=== PATIENT | male | born 1975 | race Caucasian/White ===

== ENCOUNTER 2018-06-04 16:06 | Inpatient (IN) | payer BC, OTHER ==
--- NOTE | 2018-06-04 16:26 | EDPHY ---
H & P Time Seen by Provider: 06/04/18 16:25 HPI/ROS: Chief complaint. Abdominal pain HPI. 42-year-old male presents with 2-3 day history of generalized abdominal pain. He began to have generalized abdominal cramping after lunch 2 days ago. He has had continuing nausea and vomiting. He is not passing any gas or having any bowel movements. Can't keep water down. He feels hot but no fever. No previous abdominal surgery or chronic abdominal problems. Decreased urination but otherwise no urinary symptoms. No chest discomfort or trouble breathing. No fever. He knows generalized abdominal pain that radiates to his back. He feels bloated. ROS Constitutional. no fever/chills, no weakness Eyes. no problems with vision ENT. no sore throat, no nasal drainage Cardiovascular. no chest pain Respiratory. no shortness of breath, no cough Abdominal. Generalized abdominal pain with nausea vomiting. No gas or stool per rectum . no problems urinating MS. no calf pain/swelling, no neck/back pain, no joint pain Skin. no rash Lymph. no swollen glands Neuro. no headache, no dizziness, no difficulty walking or with speech Past Medical/Surgical History: Past medical history significant for vasectomy Social History: , nonsmoker, no alcohol Smoking Status: Never smoked Physical Exam: General Appearance: Alert well-developed male moderate distress vital signs are stable Eyes: Pupils equal and round no pallor or injection. ENT, Mouth: Mucous membranes are moist. Respiratory: There are no retractions, lungs are clear to auscultation. Cardiovascular: Regular rate and rhythm. Gastrointestinal: Abdomen is soft with generalized diffuse tenderness. No masses. No bowel sounds present Neurological: Awake and alert, sensory and motor exams grossly normal. Skin: Warm and dry, no rashes. Musculoskeletal: Neck is supple nontender. Extremities symmetrical, full range of motion. Psychiatric: Patient is oriented X 3, there is no agitation. Constitutional: Initial Vital Signs Temperature (C) 36.6 C 06/04/18 16:22 Heart Rate 76 06/04/18 16:22 Respiratory Rate 16 06/04/18 16:22 Blood Pressure 139/90 H 06/04/18 16:22 O2 Sat (%) 95 06/04/18 16:22 O2 Delivery Mode Room Air Allergies/Adverse Reactions: shellfish derived Allergy (Verified 06/04/18 16:21) Home Medications: Medication Instructions Recorded NK [No Known Home Meds] 06/04/18 Medical Decision Making - Diagnostics Imaging Results: Imaging Impressions Abdomen CT 06/04/18 16:40 Impression: 1. There is a high-grade small bowel obstruction with the point of transition in the left paracentral wys-du-abauf abdomen, with no discernible obstructing mass (the patient reportedly does not have a prior abdominal surgical history). There is resultant upstream small bowel dilatation and submucosal edema, and the stomach is fluid-distended, and the patient would benefit from a nasogastric tube and a surgical consultation. 2. Small-volume ascites. 3. Mild diffuse hepatic steatosis. Findings were discussed with JILL IVEY MD at 18:02, on 06/04/2018. CT abdomen and pelvis reviewed by me and discussed with Dr. Sandoval shows a small bowel obstruction Procedures: IV normal saline. IV Zofran ED Course/Re-evaluation: Re-evaluation at 5:20 p.m. Patient is stable. He and I discussed imaging study results, treatment plan including recommendation for surgical consultation. He expresses understanding and agreement I consulted discussed the case with Dr. Borja for surgery who will see the patient in the emergency department Differential Diagnosis: I have considered diverticulitis, small-bowel obstruction, pancreatitis - Data Points Laboratory Results: Laboratory Results 06/04/18 16:35 06/04/18 16:35 06/04/18 06/04/18 16:35 16:35 WBC 10.74 10^3/uL H 10^3/uL (3.80-9.50) RBC 5.61 10^6/uL 10^6/uL (4.40-6.38) Hgb 17.4 g/dL g/dL (13.7-17.5) Hct 50.5 % % (40.0-51.0) MCV 90.0 fL fL (81.5-99.8) MCH 31.0 pg pg (27.9-34.1) MCHC 34.5 g/dL g/dL (32.4-36.7) RDW 12.0 % % (11.5-15.2) Plt Count 292 10^3/uL 10^3/uL (150-400) MPV 10.0 fL fL (8.7-11.7) Neut % (Auto) 78.9 % H % (39.3-74.2) Lymph % (Auto) 10.3 % L % (15.0-45.0) [place] % (Auto) 10.1 % % (4.5-13.0) Eos % (Auto) 0.2 % L % (0.6-7.6) Baso % (Auto) 0.3 % % (0.3-1.7) Nucleat RBC Rel Count 0.0 % % (0.0-0.2) Absolute Neuts (auto) 8.48 10^3/uL H 10^3/uL (1.70-6.50) Absolute Lymphs (auto) 1.11 10^3/uL 10^3/uL (1.00-3.00) Absolute Monos (auto) 1.08 10^3/uL H 10^3/uL (0.30-0.80) Absolute Eos (auto) 0.02 10^3/uL L 10^3/uL (0.03-0.40) Absolute Basos (auto) 0.03 10^3/uL 10^3/uL (0.02-0.10) Absolute Nucleated RBC 0.00 10^3/uL 10^3/uL (0-0.01) Immature Gran % 0.2 % % (0.0-1.1) Immature Gran # 0.02 10^3/uL 10^3/uL (0.00-0.10) Sodium 138 mEq/L mEq/L (135-145) Potassium 4.1 mEq/L mEq/L (3.3-5.0) Chloride 96 mEq/L L mEq/L (97-110) Carbon Dioxide 30 mEq/l mEq/l (22-31) Anion Gap 12 mEq/L mEq/L (8-16) BUN 37 mg/dL H mg/dL (7-23) Creatinine 1.4 mg/dL H mg/dL (0.7-1.3) Estimated GFR 55 Glucose 130 mg/dL H mg/dL (70-100) Calcium 10.9 mg/dL H mg/dL (8.5-10.4) Phosphorus Pending Lipase 77 IU/L IU/L (23-300) Medications Given: Discontinued Medications Sodium Chloride (Ns) 1,000 mls @ 0 mls/hr IV EDNOW ONE; Wide Open PRN Reason: Protocol Stop: 06/04/18 16:41 Last Admin: 06/04/18 16:56 Dose: 1,000 mls Sodium Chloride (Ns) 1,000 mls @ 0 mls/hr IV EDNOW ONE; Wide Open PRN Reason: Protocol Stop: 06/04/18 16:41 Last Admin: 06/04/18 16:56 Dose: 1,000 mls Ondansetron HCl (Zofran) 4 mg IVP EDNOW ONE Stop: 06/04/18 16:41 Last Admin: 06/04/18 16:56 Dose: 4 mg Departure - Departure Disposition: [facility] Acute Clinical Impression: Small bowel obstruction Condition: Fair
[2018-06-04] MEDS ORDERED: ONDANSETRON 4 MG/2 ML VIAL IVP ONE (16:40)
[2018-06-04] MEDS ORDERED: NS 1,000 ML IV ONE ×2 (16:40)
[2018-06-04 16:52] LABS: PLATELET COUNT 292 10^3/uL (150-400)
[2018-06-04] MEDS ORDERED: IOPAMIDOL (ISOVUE-300) 100 ML BTL ONE (17:00)
[2018-06-04] MEDS ORDERED: ONDANSETRON 4 MG/2 ML VIAL IVP PRN ×2 (19:12→21:21)
--- NOTE | 2018-06-04 19:17 | PDGENHP ---
History and Physical - Chief Complaint intestinal obstruction - History of Present Illness Mauricio Betts is a 42-year-old gentleman who was in his usual baseline state of health until 2 days ago. He began having obstipation abdominal cramping no gas or stool. The patient is here visiting from [place] on business. He presents with increased abdominal pain and signs of bowel obstruction. No prior symptoms. Pain is 8 at our 9/10 and is crampy in nature. It is in the mid epigastric region without radiation. He has vomited several times with additional nausea. His last meal was at 1 o'clock today applesauce with a little bit of water which he promptly vomited. The patient has had multiple episodes of vomiting over the last several days related to oral intake. He thought was the flu. But it has not gone away. CT scan of the abdomen and pelvis demonstrates bowel obstruction with a transition point decompression distally with proximal dilation. He has had no prior surgery. No family history of GI concerns History Information - Allergies/Home Medication List Allergies/Adverse Reactions: shellfish derived Allergy (Verified 06/04/18 19:10) Swelling/neck,face,throat Home Medications: Ibuprofen [Motrin (*)] 400 - 600 mg PO Q6H PRN 06/04/18 [Last Taken Unknown] I have personally reviewed and updated: family history, medical history, social history, surgical history - Past Medical History no pertinent PMH - Surgical History Reports: no pertinent surgical hx - Family History Positive for: cancer (Breast cancer mother), CAD (Heart attack mother and grandfather) - Social History Smoking Status: Never smoked Review of Systems Review of Systems: ROS: 10pt was reviewed & negative except for what was stated in HPI & below Gastrointestinal: Reports: vomitting, abdominal pain, nausea Physical Exam Physical Exam: Alert oriented In abdominal pain with distress from this. Sclerae anicteric pupils equal No JVD no thyromegaly trachea midline Lungs clear bilaterally Heart regular rate and rhythm Abdomen soft mildly distended nontender no scars no hepatosplenomegaly Extremities without edema 2+ over 2+ distal pulses Skin warm and dry No rashes Normal affect Nonfocal neurologic exam Temp Pulse Resp BP Pulse Ox 37.1 C 62 18 155/91 H 95 06/04/18 19:12 06/04/18 19:12 06/04/18 19:12 06/04/18 19:12 06/04/18 19:12 Lab Data & Imaging Review 06/04/18 16:35 06/04/18 16:35 WBC 10.74 10^3/uL (3.80-9.50) H 06/04/18 16:35 RBC 5.61 10^6/uL (4.40-6.38) 06/04/18 16:35 Hgb 17.4 g/dL (13.7-17.5) 06/04/18 16:35 Hct 50.5 % (40.0-51.0) 06/04/18 16:35 MCV 90.0 fL (81.5-99.8) 06/04/18 16:35 MCH 31.0 pg (27.9-34.1) 06/04/18 16:35 MCHC 34.5 g/dL (32.4-36.7) 06/04/18 16:35 RDW 12.0 % (11.5-15.2) 06/04/18 16:35 Plt Count 292 10^3/uL (150-400) 06/04/18 16:35 MPV 10.0 fL (8.7-11.7) 06/04/18 16:35 Neut % (Auto) 78.9 % (39.3-74.2) H 06/04/18 16:35 Lymph % (Auto) 10.3 % (15.0-45.0) L 06/04/18 16:35 [place] % (Auto) 10.1 % (4.5-13.0) 06/04/18 16:35 Eos % (Auto) 0.2 % (0.6-7.6) L 06/04/18 16:35 Baso % (Auto) 0.3 % (0.3-1.7) 06/04/18 16:35 Nucleat RBC Rel Count 0.0 % (0.0-0.2) 06/04/18 16:35 Absolute Neuts (auto) 8.48 10^3/uL (1.70-6.50) H 06/04/18 16:35 Absolute Lymphs (auto) 1.11 10^3/uL (1.00-3.00) 06/04/18 16:35 Absolute Monos (auto) 1.08 10^3/uL (0.30-0.80) H 06/04/18 16:35 Absolute Eos (auto) 0.02 10^3/uL (0.03-0.40) L 06/04/18 16:35 Absolute Basos (auto) 0.03 10^3/uL (0.02-0.10) 06/04/18 16:35 Absolute Nucleated RBC 0.00 10^3/uL (0-0.01) 06/04/18 16:35 Immature Gran % 0.2 % (0.0-1.1) 06/04/18 16:35 Immature Gran # 0.02 10^3/uL (0.00-0.10) 06/04/18 16:35 Sodium 138 mEq/L (135-145) 06/04/18 16:35 Potassium 4.1 mEq/L (3.3-5.0) 06/04/18 16:35 Chloride 96 mEq/L (97-110) L 06/04/18 16:35 Carbon Dioxide 30 mEq/l (22-31) 06/04/18 16:35 Anion Gap 12 mEq/L (8-16) 06/04/18 16:35 BUN 37 mg/dL (7-23) H 06/04/18 16:35 Creatinine 1.4 mg/dL (0.7-1.3) H 06/04/18 16:35 Estimated GFR 55 06/04/18 16:35 Glucose 130 mg/dL (70-100) H 06/04/18 16:35 Calcium 10.9 mg/dL (8.5-10.4) H 06/04/18 16:35 Phosphorus 5.7 mg/dL (2.5-4.5) H 06/04/18 16:35 Lipase 77 IU/L (23-300) 06/04/18 16:35 Imaging Review: Personally reviewed CT scan agree with findings of mid abdominal obstruction with transition point. Discussed this with the patient and showed him on [facility] PACS system Imaging Impressions Abdomen CT 06/04/18 16:40 Impression: 1. There is a high-grade small bowel obstruction with the point of transition in the left paracentral tso-fc-fwoal abdomen, with no discernible obstructing mass (the patient reportedly does not have a prior abdominal surgical history). There is resultant upstream small bowel dilatation and submucosal edema, and the stomach is fluid-distended, and the patient would benefit from a nasogastric tube and a surgical consultation. 2. Small-volume ascites. 3. Mild diffuse hepatic steatosis. Findings were discussed with JILL IVEY MD at 18:02, on 06/04/2018. Assessment & Plan Assessment: Small bowel obstruction (Acute) Plan: Options for care include nasogastric decompression and time. Imaging studies such as small-bowel follow-through. My recommendations would be given the fact he has no history of previous surgery laparoscopy possible laparotomy. The risks benefits and alternatives of surgery were clearly discussed with the patient he was given a chance to ask questions which were addressed. The risks include but are not limited to bleeding, infection, injury to surrounding structures including the bowel that would require additional surgery. Anticipate 24-48 hours in the hospital after surgery. Toradol for pain. NPO. IV fluids.
[2018-06-04] MEDS ORDERED: LR 1,000 ML IV SCH (19:30)
[2018-06-04] MEDS ORDERED: MIDAZOLAM 2 MG/2 ML VIAL IVP ONE (19:44)
--- NOTE | 2018-06-04 19:46 | PDANEPAE ---
ANE History of Present Illness exp laparoscopy ANE Past Medical History - Cardiovascular History Hx Hypertension: No Hx Arrhythmias: No Hx Chest Pain: No Hx Coronary Artery / Peripheral Vascular Disease: No Hx CHF / Valvular Disease: No Hx Palpitations: No - Pulmonary History Hx COPD: No Hx Asthma/Reactive Airway Disease: No Hx Recent Upper Respiratory Infection: No Hx Oxygen in Use at Home: No Hx Sleep Apnea: No - Neurologic History Hx Cerebrovascular Accident: No Hx Seizures: No Hx Dementia: No - Endocrine History Hx Diabetes: No Hypothyroid: No Hyperthyroid: No - Renal History Hx Renal Disorders: No - Liver History Hx Hepatic Disorders: No ANE Review of Systems Review of Systems: - Exercise capacity Exercise capacity: >=4 METS ANE Patient History - Allergies Allergies/Adverse Reactions: shellfish derived Allergy (Verified 06/04/18 19:10) Swelling/neck,face,throat - Home Medications Home medications: home medication list seen and reviewed Home Medications: Ibuprofen [Motrin (*)] 400 - 600 mg PO Q6H PRN 06/04/18 [Last Taken Unknown] - NPO status NPO Since - Liquids (Date): 06/04/18 NPO Since - Liquids (Time): 13:00 NPO Since - Solids (Date): 06/04/18 NPO Since - Solids (Time): 13:00 - Anes Hx Anes Hx: no prior problems - Smoking Hx Smoking Status: Never smoked ANE Labs/Vital Signs - Labs Result Diagrams: 06/04/18 16:35 06/04/18 16:35 - Vital Signs Blood Pressure: 155/91 Heart Rate: 62 Respiratory Rate: 18 O2 Sat (%): 95 Height: 185.42 cm Weight: 97.522 kg ANE Physical Exam - Airway Mallampati Score: Class 2 Mouth exam: normal dental/mouth exam - Pulmonary Pulmonary: no respiratory distress - Cardiovascular Cardiovascular: regular rate and rhythym - ASA Status ASA Status: I, E ANE Anesthesia Plan Anesthesia Plan: general endotracheal anesthesia
[2018-06-04] MEDS ORDERED: ROCURONIUM 100 MG/10 ML VIAL ONE (19:49)
[2018-06-04] MEDS ORDERED: SUCCINYLCHOLINE CHLORIDE 200 MG/10 ML SYR IVP ONE (19:49)
[2018-06-04] MEDS ORDERED: KETOROLAC 30 MG/1 ML SDV ONE (19:49)
[2018-06-04] MEDS ORDERED: LIDOCAINE 2% 5 ML SDV ONE (19:49)
[2018-06-04] MEDS ORDERED: DEXAMETHASONE 4 MG/ML VIAL ONE (19:49)
[2018-06-04] MEDS ORDERED: ONDANSETRON 4 MG/2 ML VIAL ONE (19:49)
[2018-06-04] MEDS ORDERED: HYDROmorphONE/DILAUDID 2 MG/ML INJ ONE (19:51)
[2018-06-04] MEDS ORDERED: PROPOFOL 200 MG/20 ML VIAL ONE (19:51)
[2018-06-04] MEDS ORDERED: LIDOCAINE 2% JELLY 5 ML TUBE ONE (19:55)
[2018-06-04] MEDS ORDERED: BUPIVACAINE/EPI 0.5% 30 ML SDV ONE (20:01)
[2018-06-04] MEDS ORDERED: MIDAZOLAM 2 MG/2 ML VIAL ONE (20:16)
[2018-06-04] MEDS ORDERED: SUGAMMADEX SODIUM 200 MG/2 ML VIAL IVP ONE ×2 (21:06)
[2018-06-04] MEDS ORDERED: fentaNYL 100 MCG/2 ML INJ IVP PRN (21:21)
[2018-06-04] MEDS ORDERED: NALOXONE HCL 0.4 MG/ML INJ IVP PRN (21:21)
[2018-06-04] MEDS ORDERED: LR 500 ML IV PRN (21:21)
[2018-06-04] MEDS ORDERED: ALBUTEROL 3 ML DEYVIAL IH PRN (21:21)
--- NOTE | 2018-06-04 21:21 | POSTANESTH ---
Post Anesthetic Evaluation Cardiovascular Status: Normal, Stable Respiratory Status: Normal, Stable Level of Consciousness/Mental Status: Can Participate in Eval Pain Control: Adequate, Prn Tx Ordered Nausea/Vomiting Control: Adequate, Prn Tx Ordered Complications Possibly Related to Anesthesia: None Noted
[2018-06-04] MEDS ORDERED: oxyCODONE IR 5 MG TAB PO PRN (21:46)
--- NOTE | 2018-06-04 21:46 | POSTOPPROG ---
Post Op Note Date of Operation: 06/04/18 Surgeon: James Borja Telegraphic Typewriter Operator Chief: None Anesthesiologist: Dr. Christian Anesthesia: GET(General Endotracheal) Pre-op Diagnosis: Intestinal obstruction Post-op Diagnosis: Adhesive intestinal obstruction closed loop Procedure: Laparoscopic lysis of adhesions Findings: Omental adhesions in the mid small bowel Inf/Abcess present in the surg proc area at time of surgery?: No Depth: Organ Space EBL: Minimal Complications: None Specimen(s): None
--- NOTE | 2018-06-04 22:22 | GOP ---
[f rep st] OPERATIVE REPORT DATE OF OPERATION: SURGEON: James Borja MD ANESTHESIA: General endotracheal anesthesia. ANESTHESIOLOGIST: Dr. Christian. PREOPERATIVE DIAGNOSIS: Small-bowel obstruction. POSTOPERATIVE DIAGNOSIS: Adhesive small bowel obstruction. PROCEDURE PERFORMED: Laparoscopic lysis of adhesions. FINDINGS: Adhesive obstruction of the omentum to the small bowel with a single band. SPECIMENS: None. ESTIMATED BLOOD LOSS: Minimal. INDICATIONS: A 42-year-old gentleman who presents to the hospital with 2 days of worsening crampy ab dominal pain. Visiting from [place]. The patient was evaluated in the emergency room. CT sca n reveals dilated loops of small bowel with small pelvic ascites consistent with complete small-bowel obstruction. The patient was advised the risks and benefits of proceeding. He has agreed to laparo scopic, possible laparotomy for treatment of bowel obstruction. DESCRIPTION OF PROCEDURE: The patient was brought to the operating room. After induction of endotra cheal anesthesia in the supine position, the abdomen was prepped with chlorhexidine and draped steril cherri. Time-out procedure was performed according to institutional standards. Local anesthetic was in fused in skin and subcutaneous tissues of the trocar sites. An optical trocar placement was done in the left flank. The abdomen was insufflated to 15 TOR with carbon dioxide. Working trocars were kavita juan m in the left lower quadrant and the lower midline under direct visualization. The abdomen was ins pected. There were loops of bowel that were dilated with obvious congestion. No evans ischemia. Th ere was a small amount of ascites in the pelvis. There were decompressed loops of bowel distal to th e area of obstruction. The bowel was followed back up from decompressed loops to the dilated loops a nd there was a definite transition point with a loop of bowel that was compressed and partially stran gulated by a strand of omentum. This omentum was broken up with blunt dissection and immediately the re was decompression of the bowel, which now was pink and viable, and succus entericus went into dist al areas of small bowel without any signs of obstruction or impediment of progress. The bowel was ru n from ligament of Treitz to ileocecal valve. There were no obvious injuries to any other areas of t he bowel. No obvious infection. The abdomen was decompressed. The working trocars were taken out. No signs of bleeding from trocar sites. These were reapproximated using 4-0 Monocryl. Dermabond wa s applied. The patient is awakened, extubated, taken to recovery room in stable condition. No immed iate complications. FLUIDS REPLACED: 1 L crystalloid. /[id number]/MODL
[2018-06-04] MEDS: KETOROLAC 15 MG/1 ML SDV IVP SCH (23:15)
[2018-06-05] MEDS: KETOROLAC 15 MG/1 ML SDV IVP SCH ×2 (05:09→11:56)
--- NOTE | 2018-06-05 10:04 | ASMTCASEMG ---
Living Arrangements What is your living Answers: With Spouse arrangement? Who do you live with? Type Of Residence What kind of residence do Answers: House you live in? Discharge Plan Comments Coordination Status Comments Notes: Pt is a 42 y/o man admitted for a SBO. Pt had surgery yesterday. Pt is here on business from [place]. pt will most likely d/c without any needs when medically stable. No therapies ordered at this time. CM available for changes. Plan: Independent Date Signed: 06/05/2018 10:03 AM Electronically Signed By:LYNETTE Bowser
--- NOTE | 2018-06-05 10:12 | PDMN ---
Medical Necessity Medical necessity: M210 intestinal obstruction: 2 days: SBO : high grade SBO NG tube, NPO, IVF, IV narcotics, S845 Lysis of adhesions by Lap A-1 OP : Lap lysis of adhesions,
[2018-06-05 11:22] VITALS: BP 119/67
--- NOTE | 2018-06-05 12:30 | SOAPPROG ---
SOAP Progress Note Assessment/Plan: Assessment/Plan: Passing flatus tolerating clears vitals stable Abd soft incisions c/d Adv diet D/C today if doing well 06/05/18 12:28 Objective: Vital Signs Temp Pulse Resp BP Pulse Ox 36.4 C 58 L 16 119/67 93 06/05/18 11:20 06/05/18 11:20 06/05/18 11:20 06/05/18 11:20 06/05/18 11:20 06/04/18 06/05/18 06/06/18 05:59 05:59 05:59 Intake Total 5355 Output Total 1650 400 Balance 3705 -400 ICD10 Worksheet Patient Problems: Problems Problem Status Onset Small bowel obstruction Acute
--- NOTE | 2018-06-19 10:43 | GDS ---
[f rep st] DISCHARGE SUMMARY This 42-year-old gentleman who presented to the hospital while on a business trip from [place] with abdominal pain. Findings were consistent with an acute small bowel obstruction. HOSPITAL COURSE: The patient was brought into the hospital, underwent emergent laparoscopic adhesiol ysis, which he tolerated well. The patient was discharged on postop day #1, tolerating a diet, ambul atory, pain controlled without narcotic pain medication. He was to follow up in the office or at [facility] with his primary care doctor in 1 week. He is to refrain from lifting greater than 50 pounds for t he next week. All questions were addressed. No pathology was treated. No further testing was done prior to discharge. He was given discharge instructions and told to follow up accordingly. /[id number]/MODL
== END 2018-06-05 13:25 | disposition home or self-care (01) | DRG 337 ==
LOC: F3E 22:00
PROVIDERS: ADMIT Surgery; ATTEND Surgery
PROC: 0DN84ZZ Release Small Intestine, Percutaneous Endoscopic Approach (ICD-10-PCS; principal; 2018-06-04 20:00)
DX: K56.50 Intestinal adhesions [bands], unspecified as to partial versus complete obstruction (principal); E86.9 Volume depletion, unspecified
CPT/HCPCS: 96374; J0330; J1100; J1170; J1885; J2250; J2270; J2405; J2704; Q9967